=== PATIENT | male | born 1970 | race African-American/Black ===

== ENCOUNTER 2018-04-12 09:27 | Emergency (ER) | payer OTHER ==
[2018-04-12 09:52] LABS: BASOPHILS % (AUTO) 0.3 %; LYMPHOCYTES # (AUTO) 1.1 10^3/uL (1.5-3.5); LYMPHOCYTES % (AUTO) 12.1 %; MEAN CORPUSCULAR HEMOGLOBIN 28.5 pg (27.0-31.0); MEAN CORPUSCULAR HGB CONC 34.4 g/dL (32.0-36.0); MEAN CORPUSCULAR VOLUME 82.9 fL (80.0-94.0); MEAN PLATELET VOLUME 8.7 fL (7.4-11.4); MONOCYTES # (AUTO) 0.3 10^3/uL (0.0-1.0); MONOCYTES % (AUTO) 3.5 %; NEUTROPHILS # (AUTO) 7.6 10^3/uL (1.5-6.6); NEUTROPHILS % (AUTO) 84.1 %; PLT - PLATELET COUNT 181 10^3/uL (130-450); RED BLOOD COUNT 4.55 10^6/uL (4.70-6.10); RED CELL DISTRIBUTION WIDTH 15.2 % (12.0-15.0)
[2018-04-12 10:11] LABS: ALBUMIN 4.4 g/dL (3.2-5.5); ALBUMIN/GLOBULIN RATIO 1.3 (1.0-2.2); CALCIUM 8.6 mg/dL (8.5-10.3); CREATININE 1.4 mg/dL (0.6-1.2); TOTAL PROTEIN 7.9 g/dL (6.7-8.2)
--- NOTE | 2018-04-12 10:15 | XRAY Report ---
Reason: soa, chest pain Procedure Date: 04/12/2018 Accession Number: [id number] / [id number] Procedure: XR - Chest 1 View X-Ray CPT Code: 49529 FULL RESULT: EXAM: CHEST RADIOGRAPHY EXAM DATE: 04/12/2018 10:00 AM. CLINICAL HISTORY: Soa, chest pain. COMPARISON: None. TECHNIQUE: 1 view. FINDINGS: Lungs/Pleura: No focal opacities evident. No pleural effusion. No pneumothorax. Mediastinum: Within exam limitations, the cardiomediastinal contour is normal. Other: None. IMPRESSION: Normal single view chest. RADIA
--- NOTE | 2018-04-12 10:21 | ED Physician Documentation ---
PD HPI DYSPNEA - Stated complaint Stated Complaint: SOA - Chief complaint Chief Complaint: Resp - History obtained from History obtained from: Patient - History of Present Illness Timing - onset: Yesterday Timing - onset during: Light activity Timing - duration: Days (1) Timing - details: Gradual onset, Still present Inciting event(s): Other (recent ETOH to excess) Improved by: Rest Worsened by: Exertion Associated symptoms: Fever, Cough, Chest pain / discomfort Similar symptoms before: Has not had sx before Recently seen: Not recently seen - Additional information Additional information: 47-year-old male with a prior history of pancreatitis has developed fever cough and chest pain with dyspnea. He states that he believes the dyspnea began last night and he experienced chest pain associated with this. He does state that he did some drinking over the weekend and that this was due in excess and he was hydrating a lot yesterday and despite this he developed some nausea and vomiting. He has felt that he has a fever and he has coughed up some clear phlegm and he describes central chest pressure that is continuous. He denies any epigastric pain and denies any sensation similar to what he has had when he pancreatitis previously. Review of Systems Constitutional: denies: Fever Eyes: denies: Decreased vision Ears: denies: Ear pain Nose: reports: Congestion. denies: Rhinorrhea / runny nose Throat: denies: Sore throat Cardiac: reports: Chest pain / pressure. denies: Palpitations, Pedal edema, Calf pain Respiratory: reports: Dyspnea, Cough. denies: Hemoptysis, Wheezing GI: reports: Nausea, Vomiting. denies: Abdominal Pain : denies: Dysuria, Frequency PD PAST MEDICAL HISTORY - Past Medical History Cardiovascular: Hypertension Respiratory: None Endocrine/Autoimmune: None GI: Pancreatitis - Past Surgical History Past Surgical History: No - Present Medications Home Medications: Ambulatory Orders Medication Instructions Recorded Confirmed No Known Home Medications 04/12/18 04/12/18 - Allergies Allergies/Adverse Reactions: Allergies Allergy/AdvReac Type Severity Reaction Status Date / Time No Known Drug Allergies Allergy Verified 04/12/18 09:41 - Social History Does the pt smoke?: No Smoking Status: Never smoker Does the pt drink ETOH?: No Does the pt have substance abuse?: No - Immunizations Immunizations are current?: Yes PD ED PE NORMAL - Vitals Vital signs reviewed: Yes (hypertensive ) - General General: Alert and oriented X 3, Well developed/nourished, Other (appears withdrawn and has AOB) - HEENT HEENT: Atraumatic, PERRL, EOMI, Ears normal, Other (dry mucous membranes ) - Neck Neck: Supple, no meningeal sign, No bony TTP - Cardiac Cardiac: RRR, No murmur - Respiratory Respiratory: Clear bilaterally, Other (tachpneic at rest ) - Abdomen Abdomen: Soft, Non tender - Back Back: No CVA TTP, No spinal TTP - Derm Derm: Normal color, Warm and dry, No rash - Extremities Extremities: No deformity, No edema - Neuro Neuro: Alert and oriented X 3, sewing 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 operator 2-12 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, No motor deficit, No sensory deficit, Normal speech Eye Opening: Spontaneous Motor: Obeys Commands Verbal: Oriented GCS Score: 15 - Psych Psych: Normal mood, Normal affect Results - Vitals Vitals: Vital Signs - 24 hr 04/12/18 04/12/18 04/12/18 09:36 09:51 10:07 Temperature 37.2 C Heart Rate 95 93 97 Respiratory 24 30 H 25 H Rate Blood Pressure 155/91 H 144/88 H O2 Saturation 100 96 100 04/12/18 04/12/18 04/12/18 10:57 11:10 12:26 Temperature 37.0 C Heart Rate 102 H 103 H 98 Respiratory 33 H 29 H 29 H Rate Blood Pressure 149/93 H 145/80 H 133/79 H O2 Saturation 98 99 95 04/12/18 04/12/18 04/12/18 13:33 14:07 16:38 Temperature Heart Rate 98 102 H 98 Respiratory 22 34 H 29 H Rate Blood Pressure 143/83 H 147/88 H 149/84 H O2 Saturation 98 98 100 Oxygen O2 Source Room air - EKG (time done) 0946 Rate: Rate (enter#) (89) Rhythm: NSR Intervals: Prolonged QT (borderline) QRS: LVH Compare to prior EKG: Old EKG unavailable Computer interpretation: Agree with computer - Labs Labs: Laboratory Tests 04/12/18 04/12/18 04/12/18 09:43 09:43 09:43 WBC 9.0 RBC 4.55 L Hgb 13.0 L Hct 37.7 L MCV 82.9 MCH 28.5 MCHC 34.4 RDW 15.2 H Plt Count 181 MPV 8.7 Neut # (Auto) 7.6 H Lymph # (Auto) 1.1 L Pike # (Auto) 0.3 Eos # (Auto) 0.0 Baso # (Auto) 0.0 Absolute Nucleated RBC 0.00 Nucleated RBC % 0.0 APTT Sodium 139 Potassium 3.9 Chloride 98 L Carbon Dioxide 17 L Anion Gap 24.0 H BUN 14 Creatinine 1.4 H Estimated GFR (MDRD) 66 L Glucose 81 Lactic Acid Calcium 8.6 Total Bilirubin 1.0 AST 93 H ALT 56 Alkaline Phosphatase 92 Troponin I < 0.04 Total Protein 7.9 Albumin 4.4 Globulin 3.5 Albumin/Globulin Ratio 1.3 Lipase 21 L Urine Color Urine Clarity Urine pH Ur Specific Ulysses Urine Protein Urine Glucose (UA) Urine Ketones Urine Occult Blood Urine Nitrite Urine Bilirubin Urine Urobilinogen Ur Leukocyte Esterase Ur Microscopic Review Urine Culture Comments Ethyl Alcohol 04/12/18 04/12/18 04/12/18 09:43 09:43 10:00 WBC RBC Hgb Hct MCV MCH MCHC RDW Plt Count MPV Neut # (Auto) Lymph # (Auto) Pike # (Auto) Eos # (Auto) Baso # (Auto) Absolute Nucleated RBC Nucleated RBC % APTT 22.0 L Sodium Potassium Chloride Carbon Dioxide Anion Gap BUN Creatinine Estimated GFR (MDRD) Glucose Lactic Acid 7.8 H* Calcium Total Bilirubin AST ALT Alkaline Phosphatase Troponin I Total Protein Albumin Globulin Albumin/Globulin Ratio Lipase Urine Color Urine Clarity Urine pH Ur Specific Ulysses Urine Protein Urine Glucose (UA) Urine Ketones Urine Occult Blood Urine Nitrite Urine Bilirubin Urine Urobilinogen Ur Leukocyte Esterase Ur Microscopic Review Urine Culture Comments Ethyl Alcohol 142.4 04/12/18 04/12/18 04/12/18 10:10 13:08 16:35 WBC RBC Hgb Hct MCV MCH MCHC RDW Plt Count MPV Neut # (Auto) Lymph # (Auto) Pike # (Auto) Eos # (Auto) Baso # (Auto) Absolute Nucleated RBC Nucleated RBC % APTT Sodium Potassium Chloride Carbon Dioxide Anion Gap BUN Creatinine Estimated GFR (MDRD) Glucose Lactic Acid 4.2 H* 1.8 Calcium Total Bilirubin AST ALT Alkaline Phosphatase Troponin I Total Protein Albumin Globulin Albumin/Globulin Ratio Lipase Urine Color DARK YELLOW Urine Clarity CLEAR Urine pH 5.5 Ur Specific Ulysses >=1.030 H Urine Protein NEGATIVE Urine Glucose (UA) NEGATIVE Urine Ketones >=80 H Urine Occult Blood NEGATIVE Urine Nitrite NEGATIVE Urine Bilirubin NEGATIVE Urine Urobilinogen 0.2 (NORMAL) Ur Leukocyte Esterase NEGATIVE Ur Microscopic Review NOT INDICATED Urine Culture Comments NOT INDICATED Ethyl Alcohol - Rads (name of study) one veiw chest Radiology: Prelim report reviewed (Impression: Normal single view chest.), EMP read indepedently, See rad report Procedures - IVC sono (time) 1030 Bedside IVC sono: IVC measures (cm) (0.77), Dehydration (est 2-3 liter deficit) PD MEDICAL DECISION MAKING - ED course Complexity details: reviewed old records, reviewed results, re-evaluated patient, considered differential, d/w patient ED course: 47-year-old male with a history of prior pancreatitis has developed acute and s ignificant dehydration resulting in some shortness of breath and chest pain. The patient is found to have a blood alcohol level of 142 and this is after his last drink at 10:00 the night prior. Patient does state that he was free pouring some Lipscomb mist. He did not think he drank more than several drinks. His blood alcohol was likely over 400 last night and this appears to be the likely culprit on why the patient is dehydrated with an elevated lactate. The patient as given a banana bag and IV saline and is markedly improved on discharge. Departure - Departure Disposition: 01 Home, Self Care Clinical Impression: Dehydration Alcohol poisoning Qualifiers: Encounter type: initial encounter Injury intent: accidental or unintentional Qualified Code(s): T51.91XA - Toxic effect of unspecified alcohol, accidental (unintentional), initial encounter Condition: Stable Instructions: ED Dehydration, ED Overdose Alcohol Follow-Up: FREDRICK ALVES MD [Primary Care Provider] -
[2018-04-12] MEDS ORDERED: SODIUM CHLORIDE 0.9% 1,000 ML IV ONE ×2 (10:36→15:09)
[2018-04-12] MEDS ORDERED: FOLIC ACID INJ 1 MG, THIAMINE INJ 100 MG, MAGNESIUM SULFATE 2 GM, MULTIVITAMIN 10 ML in... IV STA ×5 (10:36)
[2018-04-12] MEDS ORDERED: VANCOMYCIN INJ 1 GM in SODIUM CHLORIDE 0.9% 500 ML IV STA (10:37)
[2018-04-12] MEDS ORDERED: CEFEPIME 1 GM in SODIUM CHLORIDE 0.9% MINIBAG 100 ML IV STA (10:37)
[2018-04-12 11:16] LABS: BILIRUBIN,URINE NEGATIVE (NEGATIVE); GLUCOSE, URINE (UA) NEGATIVE (NEGATIVE); KETONES,URINE (UA) >=80 mg/dL (NEGATIVE); LEUKOCYTE ESTERASE, URINE NEGATIVE (NEGATIVE); NITRITE,URINE NEGATIVE (NEGATIVE); OCCULT BLOOD,URINE NEGATIVE (NEGATIVE); PH,URINE 5.5 PH (5.0-7.5); PROTEIN,URINE NEGATIVE (NEGATIVE); UROBILINOGEN,URINE 0.2 (NORMAL) E.U./dL (NORMAL)
[2018-04-12 11:17] LABS: CLARITY,URINE CLEAR (CLEAR)
[2018-04-12 16:38] VITALS: BP 149/84
== END 2018-04-12 17:04 | disposition home or self-care (01) ==
LOC: ED 09:27
DX: E86.0 Dehydration (principal); T51.91XA Toxic effect of unspecified alcohol, accidental (unintentional), initial encounter; I10 Essential (primary) hypertension; I45.81 Long QT syndrome; I51.7 Cardiomegaly; Y90.6 Blood alcohol level of 120-199 mg/100 ml
CPT/HCPCS: 36415; 71045; 80053; 80320; 81003; 83605; 83690; 84484; 85025; 85730; 87040; 93005; 96365; 96366; 96367; 96368; 99284; J3370; J3411; 81001; 87086

== ENCOUNTER 2018-09-27 23:02 | Outpatient (CLI) | payer OTHER | END 2018-09-27 23:03 | disposition critical access hospital (66) | LOC: EMS 23:02 | PROVIDERS: ATTEND Surgery | DX: S89.92XA Unspecified injury of left lower leg, initial encounter (principal); V18.4XXA Pedal cycle driver injured in noncollision transport accident in traffic accident, initial encounter; Y93.55 Activity, bike riding; Y92.410 Unspecified street and highway as the place of occurrence of the external cause | CPT/HCPCS: A0425; A0429 ==

== ENCOUNTER 2018-09-27 23:24 | Inpatient (IN) | payer OTHER ==
[2018-09-27] MEDS ORDERED: ONDANSETRON 4 MG/2 ML VIAL IVP STA (23:34)
[2018-09-27] MEDS ORDERED: fentaNYL 100 MCG/2 ML VIAL IVP STA (23:34)
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
[2018-09-28] MEDS ORDERED: ONDANSETRON 4 MG/2 ML VIAL IVP PRN ×2 (00:58→17:07)
[2018-09-28] MEDS ORDERED: HYDROmorphone 0.5 MG/0.5 ML SYRINGE IVP PRN (00:58)
[2018-09-28] MEDS ORDERED: ENOXAPARIN 40 MG/0.4 ML SYRINGE SUBQ SCH (01:07)
[2018-09-28] MEDS ORDERED: MORPHINE 2 MG/ML SYRINGE IVP STA (01:24)
[2018-09-28] MEDS: SODIUM CHLORIDE 0.9% 1,000 ML IV SCH ×3 (02:13→20:29)
[2018-09-28] MEDS: SODIUM CHLORIDE FLUSH 0.9% 10 ML SYRINGE IVP SCH ×3 (02:20→18:20)
[2018-09-28] MEDS: HYDROmorphone 1 MG/ML CARPUJECT IVP PRN ×3 (02:47→11:06)
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
[2018-09-28] MEDS: SODIUM CHLORIDE FLUSH 0.9% 10 ML SYRINGE IVP PRN (04:59)
[2018-09-28] MEDS ORDERED: HYDROmorphone 1 MG/ML CARPUJECT IVP PRN (05:16)
--- NOTE | 2018-09-28 08:46 | ANESTHESIA ---
Pre-Anesthesia VS, & Labs - Diagnosis Left tibial fracture - Procedure left orif tibial fracture Vital Signs: Temp Pulse Resp BP Pulse Ox 37 C 77 18 124/76 94 09/28/18 02:10 09/28/18 02:10 09/28/18 02:10 09/28/18 02:10 09/28/18 02:10 Height 5 ft 9 in Weight (kg) 77 kg Body Mass Index 25.0 - NPO >8 hours Home Medications and Allergies Active Medications Hydromorphone HCl (Dilaudid Inj Carp) 1 mg IVP Q2HR PRN PRN Reason: MODERATE PAIN 4-7 Last Admin: 09/28/18 04:58 Dose: 1 mg Hydromorphone HCl (Dilaudid Inj Carp) 1.5 mg IVP Q2HR PRN PRN Reason: SEVERE PAIN 8-10 Last Admin: 09/28/18 07:48 Dose: 1.5 mg Sodium Chloride (Normal Saline 0.9%) 1,000 mls @ 100 mls/hr IV .Q10H [facility] Last Admin: 09/28/18 02:13 Dose: 100 mls/hr Ondansetron HCl (Zofran Inj) 4 mg IVP Q6HR PRN PRN Reason: Nausea / Vomiting Polyethylene Glycol (Miralax) 17 gm PO DAILY [facility] Sodium Chloride (Normal Saline Flush 0.9%) 10 ml IVP PRN PRN PRN Reason: NEEDED PER PROVIDER ORDERS Last Admin: 09/28/18 04:59 Dose: 10 ml Sodium Chloride (Normal Saline Flush 0.9%) 10 ml IVP 0100,0900,1700 [facility] Last Admin: 09/28/18 02:20 Dose: 10 ml No Known Home Medications 04/12/18 Home meds: trazadone, amlodapine Allergies/Adverse Reactions: Allergies Allergy/AdvReac Type Severity Reaction Status Date / Time No Known Drug Allergies Allergy Verified 09/27/18 23:30 Anes History & Medical History - Anesthetic History Anesthesia Complications: reports: No previous complications Family history of Anesthesia Complications: Denies Family history of Malignant Hyperthermia: Denies - Medical History Cardiovascular: reports: Hypertension Pulmonary: reports: None Gastrointestinal: reports: None, Pancreatitis (2016) Urinary: reports: None Neuro: reports: None Musculoskeletal: reports: None Endocrine/Autoimmune: reports: None Blood Disorders: reports: None Smoking Status: Never smoker Psychosocial: reports: No issues indicated - Surgical History Eyes Ears Nose Throat (EENT): Other (dental surgery) Exam General: Alert, Oriented x3, Cooperative, No acute distress Dental: WNL Mouth Openin Fingerbreadth Neck Mobility: Normal Mallampati classification: II Thyromental Distance: 4-6 cm Respiratory: Lungs clear, Normal breath sounds, No respiratory distress, No accessory muscle use Cardiovascular: Regular rate, Normal S1, Normal S2, No murmurs Mental/Cognitive Status: Alert/Oriented X3, Normal for patient Plan Anesthesia Type: General Consent for Procedure(s) Verified and Reviewed: Yes Code Status: Attempt Resuscitation ASA classification: 2-Mild systemic disease Is this case an emergency?: No
[2018-09-28] MEDS ORDERED: KETOROLAC 30 MG/ML VIAL IVP SCH (08:51)
[2018-09-28] MEDS ORDERED: ACETAMINOPHEN 500 MG TABLET PO PRN (08:51)
[2018-09-28] MEDS: POLYETHYLENE GLYCOL 3350 17 GM PACKET PO SCH (09:15)
[2018-09-28] MEDS ORDERED: BUPIVACAINE 0.5%-EPI 1:200000 PF 30 ML VIAL ONE (12:15)
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
[2018-09-28] MEDS ORDERED: LACTATED RINGERS 1,000 ML IV ONE ×3 (13:50→16:06)
[2018-09-28] MEDS ORDERED: BUPIVACAINE 0.5%-EPI 1:200000 PF 30 ML VIAL SUBQ ONE (14:28)
[2018-09-28] MEDS ORDERED: fentaNYL 100 MCG/2 ML VIAL IVP ONE (14:30)
[2018-09-28] MEDS ORDERED: ONDANSETRON 4 MG/2 ML VIAL IVP ONE (14:30)
[2018-09-28] MEDS ORDERED: MIDAZOLAM 2 MG/2 ML VIAL IVP ONE (14:30)
[2018-09-28] MEDS ORDERED: ROCURONIUM 50 MG/5 ML VIAL IVP ONE (14:30)
[2018-09-28] MEDS ORDERED: PROPOFOL 200 MG/20 ML VIAL IVP ONE (14:30)
[2018-09-28] MEDS ORDERED: DEXAMETHASONE 4 MG/ML VIAL IVP ONE (14:30)
[2018-09-28] MEDS ORDERED: KETOROLAC 30 MG/ML VIAL IVP ONE (14:30)
[2018-09-28] MEDS ORDERED: SUCCINYLCHOLINE 200 MG/10 ML VIAL IVP ONE (14:30)
[2018-09-28] MEDS ORDERED: ePHEDrine 50 MG/ML VIAL IVP ONE (14:30)
[2018-09-28] MEDS ORDERED: HYDROmorphone 1 MG/ML SYRINGE IVP ONE (14:30)
[2018-09-28] MEDS ORDERED: ceFAZolin 1 GM VIAL IV ONE (14:30)
[2018-09-28] MEDS ORDERED: fentaNYL 250 MCG/5 ML VIAL IVP ONE (14:30)
[2018-09-28] MEDS ORDERED: ACETAMINOPHEN 1,000 MG/100 ML 100 ML IV ONE (14:30)
[2018-09-28] MEDS ORDERED: LIDOCAINE-MPF 1% 5 ML VIAL SUBQ ONE (14:30)
--- NOTE | 2018-09-28 16:41 | XRAY Report ---
Reason: Left Tibia Fx rodding Procedure Date: 09/28/2018 Accession Number: [id number] / [id number] Procedure: XR - Tib/Fib LT CPT Code: FULL RESULT: EXAM: LEFT TIBIA/FIBULA RADIOGRAPHY EXAM DATE: 09/28/2018 04:24 PM. CLINICAL HISTORY: Intra- op check COMPARISON: 09/27/2018. TECHNIQUE: 2 views. FINDINGS IMPRESSION: C-arm fluoroscopic assistance is provided for intramedullary alayna placement in the left tibia. 6 images are obtained. RADIA
--- NOTE | 2018-09-28 16:48 | XRAY Report ---
Reason: FX LEFT TIBIA Procedure Date: 09/28/2018 Accession Number: [id number] / [id number] Procedure: FL - OR C-Arm Procedure CPT Code: FULL RESULT: EXAM: FLUOROSCOPIC GUIDANCE EXAM DATE: 09/28/2018 04:24 PM. CLINICAL HISTORY: Left tibia fracture COMPARISON: 09/27/2018. FINDINGS IMPRESSION: Fluoroscopic guidance provided for ORIF left tibia.. Total fluoroscopy time: 1:58 minutes. Number of images: 6. JOSUE
--- NOTE | 2018-09-28 17:06 | IMMEDIATE POSTOPERATIVE NOTE ---
Immediate Postoperative Note - Procedure Note Procedure Date: 09/28/18 Pre-Op Diagnosis: Left tibia and fibula fracture Procedure: Left tibia open reduction internal fixation with intramedullary nail Post-Op Diagnosis: Same Primary Surgeon: Yessy Odell Soap Drier Operator: KORINA Anesthesia Type: General ET tube, Local Complications: No complications Estimated Blood Loss (in cc): 200 Plan of Care: Patient told procedure well instrument and sponge counts correct patient will be admitted for overnight for observation and then be discharged when eating ambulating comfortable. He would have neurovascular checks and analgesics overnight. He will be on perioperative DVT prophylaxis perioperative antibiotics nonweightbearing left lower extremity with crutches, walker, or other assistive device and assistance as necessary.
[2018-09-28] MEDS ORDERED: SENNA 8.6 MG TABLET PO PRN (17:07)
[2018-09-28] MEDS ORDERED: SODIUM CHLORIDE FLUSH 0.9% 10 ML SYRINGE IVP PRN (17:07)
[2018-09-28] MEDS ORDERED: PROCHLORPERAZINE 10 MG/2 ML VIAL IVP PRN (17:07)
[2018-09-28] MEDS ORDERED: ACETAMINOPHEN 1,000 MG/100 ML 100 ML IV PRN (17:07)
[2018-09-28] MEDS: oxyCODONE 5 MG TABLET PO PRN (18:19)
[2018-09-28 19:00] LABS: BASOPHILS # (AUTO) 0.1 10^3/uL (0.0-0.1); BASOPHILS % (AUTO) 0.7 %; HGB - HEMOGLOBIN 11.7 g/dL (14.0-18.0); INR 1.1 (0.8-1.2); LYMPHOCYTES # (AUTO) 0.6 10^3/uL (1.5-3.5); LYMPHOCYTES % (AUTO) 6.2 %; MEAN CORPUSCULAR HEMOGLOBIN 25.8 pg (27.0-31.0); MEAN CORPUSCULAR HGB CONC 32.9 g/dL (32.0-36.0); MEAN CORPUSCULAR VOLUME 78.3 fL (80.0-94.0); MEAN PLATELET VOLUME 7.9 fL (7.4-11.4); MONOCYTES # (AUTO) 0.3 10^3/uL (0.0-1.0); MONOCYTES % (AUTO) 3.5 %; NEUTROPHILS # (AUTO) 8.2 10^3/uL (1.5-6.6); NEUTROPHILS % (AUTO) 89.6 %; PLT - PLATELET COUNT 219 10^3/uL (130-450); PT - PROTHROMBIN TIME 12.4 secs (9.9-12.6); RED BLOOD COUNT 4.54 10^6/uL (4.70-6.10); RED CELL DISTRIBUTION WIDTH 17.5 % (12.0-15.0); WHITE BLOOD COUNT 9.1 x10^3/uL (4.8-10.8)
[2018-09-28 19:18] LABS: CALCIUM 7.8 mg/dL (8.5-10.3); CREATININE 1.4 mg/dL (0.6-1.2)
[2018-09-28] MEDS: APIXABAN 5 MG TABLET PO SCH (20:28)
[2018-09-28] MEDS: ceFAZolin 2 GM in SODIUM CHLORIDE 0.9% MINIBAG 100 ML IV SCH (21:35)
[2018-09-29] MEDS ORDERED: SODIUM CHLORIDE FLUSH 0.9% 10 ML SYRINGE IVP SCH (01:00)
[2018-09-29] MEDS: SODIUM CHLORIDE FLUSH 0.9% 10 ML SYRINGE IVP SCH ×4 (01:07→23:43)
[2018-09-29] MEDS: CALCIUM CARBONATE CHEW 500 MG TABLET PO SCH ×3 (01:12→21:19)
[2018-09-29] MEDS: oxyCODONE 5 MG TABLET PO PRN ×6 (04:30→22:39)
[2018-09-29 05:37] LABS: HB2 TOTAL 10.5 g/dL; HEMOGLOBIN A1C 0.44 g/dL
[2018-09-29] MEDS: ceFAZolin 2 GM in SODIUM CHLORIDE 0.9% MINIBAG 100 ML IV SCH (06:03)
[2018-09-29] MEDS: SODIUM CHLORIDE FLUSH 0.9% 10 ML SYRINGE IVP PRN ×2 (06:04→11:13)
[2018-09-29] MEDS: SODIUM CHLORIDE 0.9% 1,000 ML IV SCH ×3 (06:44→23:48)
[2018-09-29] MEDS: HYDROmorphone 0.5 MG/0.5 ML SYRINGE IVP PRN ×6 (08:28→23:42)
[2018-09-29] MEDS: amLODIPine 5 MG TABLET PO SCH (08:57)
[2018-09-29] MEDS: POLYETHYLENE GLYCOL 3350 17 GM PACKET PO SCH (08:57)
[2018-09-29] MEDS: APIXABAN 5 MG TABLET PO SCH ×2 (08:57→21:20)
--- NOTE | 2018-09-29 09:37 | CONSULTATION NOTE ---
History - Past Medical History Cardiovascular: reports: Hypertension Respiratory: reports: None Neuro: reports: None Endocrine/Autoimmune: reports: None GI: reports: None, Pancreatitis (2016) : reports: None Musculoskeletal: reports: None MRSA Hx?: No - Past Surgical History HEENT: reports: Other (dental surgery) Meds/Allgy - Home Medications Home Medications: Ambulatory Orders Medication Instructions Recorded Confirmed Amlodipine Besylate 10 mg PO DAILY 09/28/18 09/28/18 Trazodone HCl 50 mg PO QPM 09/28/18 09/28/18 - Allergies Allergies/Adverse Reactions: Allergies Allergy/AdvReac Type Severity Reaction Status Date / Time No Known Drug Allergies Allergy Verified 09/27/18 23:30 Exam - Vital Signs Vital Signs: Vital Signs x48h Temp Pulse Resp BP Pulse Ox 09/29/18 08:36 37.2 C 81 18 133/68 H 97 09/29/18 03:00 37.0 C 83 16 140/78 H 100 Conclusion/Plan - Lab Results Fish Bones: 09/28/18 18:47 09/28/18 18:47
[2018-09-29 09:41] LABS: BASOPHILS % (AUTO) 0.5 %; EOSINOPHILS % (AUTO) 0.1 %; HGB - HEMOGLOBIN 9.8 g/dL (14.0-18.0); LYMPHOCYTES % (AUTO) 24.2 %; MEAN CORPUSCULAR HEMOGLOBIN 26.1 pg (27.0-31.0); MEAN CORPUSCULAR HGB CONC 33.6 g/dL (32.0-36.0); MEAN CORPUSCULAR VOLUME 77.9 fL (80.0-94.0); MEAN PLATELET VOLUME 8.1 fL (7.4-11.4); MONOCYTES # (AUTO) 0.4 10^3/uL (0.0-1.0); MONOCYTES % (AUTO) 4.8 %; NEUTROPHILS # (AUTO) 5.7 10^3/uL (1.5-6.6); NEUTROPHILS % (AUTO) 70.4 %; PLT - PLATELET COUNT 165 10^3/uL (130-450); RED BLOOD COUNT 3.74 10^6/uL (4.70-6.10); RED CELL DISTRIBUTION WIDTH 17.3 % (12.0-15.0); WHITE BLOOD COUNT 8.1 x10^3/uL (4.8-10.8)
[2018-09-29 09:52] LABS: ALBUMIN 3.1 g/dL (3.2-5.5); ALBUMIN/GLOBULIN RATIO 1.1 (1.0-2.2); BILIRUBIN,TOTAL 0.7 mg/dL (0.2-1.0); CALCIUM 7.6 mg/dL (8.5-10.3); CREATININE 1.2 mg/dL (0.6-1.2); TOTAL PROTEIN 5.9 g/dL (6.7-8.2)
[2018-09-29 10:04] LABS: HB2 TOTAL 10.1 g/dL; HEMOGLOBIN A1C 0.33 g/dL; HEMOGLOBIN A1C % 5.1 % (4.6-6.2)
[2018-09-29] MEDS: ACETAMINOPHEN 325 MG TABLET PO PRN ×2 (11:13→18:18)
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
[2018-09-29] MEDS: HYDROcod/ACETAM 5/325 MG TABLET PO PRN ×2 (15:27→20:08)
--- NOTE | 2018-09-29 16:54 | PROVIDER PROGRESS NOTE ---
Subjective - Prog Note Date Prog Note Date: 09/29/18 Prog Note Time: 07:20 - Subjective Pt reports feeling: Improved (Patient said he has some soreness in his right knee but overall says that he thinks he is feeling better this morning. He is appreciative of his surgery. He does mention having difficulty sleeping overnight.) Objective - Vital Signs/Intake & Output Vital Signs: Vital Signs x48h Temp Pulse Pulse Pulse Resp BP BP 09/29/18 15:41 37.2 C 72 16 128/63 09/29/18 13:16 36.8 C 72 16 123/72 09/29/18 12:00 36.7 C 79 16 113/66 09/29/18 10:25 97 81 125/79 BP Pulse Ox 09/29/18 15:41 96 09/29/18 13:16 98 09/29/18 12:00 95 09/29/18 10:25 127/70 Intake & Output: Intake & Output 09/26/18 09/27/18 09/28/18 09/29/18 23:59 23:59 23:59 23:59 Intake Total 4440 3301.666 Output Total 1600 2400 Balance 2840 901.666 - Lab Results Fish Bones: 09/29/18 09:30 09/29/18 09:30 Other Labs: Lab Results x24hrs 09/29/18 09/29/18 09/29/18 Range/Units 09:30 09:30 09:30 WBC 8.1 (4.8-10.8) x10^3/uL RBC 3.74 L (4.70-6.10) 10^6/uL Hgb 9.8 L (14.0-18.0) g/dL Hct 29.1 L (42.0-52.0) % MCV 77.9 L (80.0-94.0) fL MCH 26.1 L (27.0-31.0) pg MCHC 33.6 (32.0-36.0) g/dL RDW 17.3 H (12.0-15.0) % Plt Count 165 (130-450) 10^3/uL MPV 8.1 (7.4-11.4) fL Neut # (Auto) 5.7 (1.5-6.6) 10^3/uL Lymph # (Auto) 2.0 (1.5-3.5) 10^3/uL [place] # (Auto) 0.4 (0.0-1.0) 10^3/uL Eos # (Auto) 0.0 (0.0-0.7) 10^3/uL Baso # (Auto) 0.0 (0.0-0.1) 10^3/uL Absolute Nucleated RBC 0.01 x10^3/uL Nucleated RBC % 0.1 /100WBC PT (9.9-12.6) secs INR (0.8-1.2) Sodium (135-145) mmol/L Potassium (3.5-5.0) mmol/L Chloride (101-111) mmol/L Carbon Dioxide (21-32) mmol/L Anion Gap (6-13) BUN (6-20) mg/dL Creatinine (0.6-1.2) mg/dL Estimated GFR (MDRD) (>89) Glucose (70-100) mg/dL Glycated Hemoglobin 5.1 (4.6-6.2) % Estim Average Glucose 100 (70-100) Calcium (8.5-10.3) mg/dL Total Bilirubin (0.2-1.0) mg/dL GGT (8-55) IU/L AST (10-42) IU/L ALT (10-60) IU/L Alkaline Phosphatase (42-121) IU/L Total Protein (6.7-8.2) g/dL Albumin (3.2-5.5) g/dL Globulin (2.1-4.2) g/dL Albumin/Globulin Ratio (1.0-2.2) TSH 0.76 (0.34-5.60) uIU/mL 09/29/18 09/29/18 09/28/18 Range/Units 09:30 04:15 18:47 WBC (4.8-10.8) x10^3/uL RBC (4.70-6.10) 10^6/uL Hgb (14.0-18.0) g/dL Hct (42.0-52.0) % MCV (80.0-94.0) fL MCH (27.0-31.0) pg MCHC (32.0-36.0) g/dL RDW (12.0-15.0) % Plt Count (130-450) 10^3/uL MPV (7.4-11.4) fL Neut # (Auto) (1.5-6.6) 10^3/uL Lymph # (Auto) (1.5-3.5) 10^3/uL [place] # (Auto) (0.0-1.0) 10^3/uL Eos # (Auto) (0.0-0.7) 10^3/uL Baso # (Auto) (0.0-0.1) 10^3/uL Absolute Nucleated RBC x10^3/uL Nucleated RBC % /100WBC PT (9.9-12.6) secs INR (0.8-1.2) Sodium 136 139 (135-145) mmol/L Potassium 3.6 4.7 (3.5-5.0) mmol/L Chloride 96 L 101 (101-111) mmol/L Carbon Dioxide 30 25 (21-32) mmol/L Anion Gap 10.0 13.0 (6-13) BUN 10 18 (6-20) mg/dL Creatinine 1.2 1.4 H (0.6-1.2) mg/dL Estimated GFR (MDRD) 79 L 66 L (>89) Glucose 133 H 175 H (70-100) mg/dL Glycated Hemoglobin 6.0 (4.6-6.2) % Estim Average Glucose 126 H (70-100) Calcium 7.6 L 7.8 L (8.5-10.3) mg/dL Total Bilirubin 0.7 (0.2-1.0) mg/dL GGT 25 (8-55) IU/L AST 30 (10-42) IU/L ALT 16 (10-60) IU/L Alkaline Phosphatase 47 (42-121) IU/L Total Protein 5.9 L (6.7-8.2) g/dL Albumin 3.1 L (3.2-5.5) g/dL Globulin 2.8 (2.1-4.2) g/dL Albumin/Globulin Ratio 1.1 (1.0-2.2) TSH (0.34-5.60) uIU/mL 09/28/18 09/28/18 Range/Units 18:47 18:47 WBC 9.1 (4.8-10.8) x10^3/uL RBC 4.54 L (4.70-6.10) 10^6/uL Hgb 11.7 L (14.0-18.0) g/dL Hct 35.6 L (42.0-52.0) % MCV 78.3 L (80.0-94.0) fL MCH 25.8 L (27.0-31.0) pg MCHC 32.9 (32.0-36.0) g/dL RDW 17.5 H (12.0-15.0) % Plt Count 219 (130-450) 10^3/uL MPV 7.9 (7.4-11.4) fL Neut # (Auto) 8.2 H (1.5-6.6) 10^3/uL Lymph # (Auto) 0.6 L (1.5-3.5) 10^3/uL [place] # (Auto) 0.3 (0.0-1.0) 10^3/uL Eos # (Auto) 0.0 (0.0-0.7) 10^3/uL Baso # (Auto) 0.1 (0.0-0.1) 10^3/uL Absolute Nucleated RBC 0.01 x10^3/uL Nucleated RBC % 0.1 /100WBC PT 12.4 (9.9-12.6) secs INR 1.1 (0.8-1.2) Sodium (135-145) mmol/L Potassium (3.5-5.0) mmol/L Chloride (101-111) mmol/L Carbon Dioxide (21-32) mmol/L Anion Gap (6-13) BUN (6-20) mg/dL Creatinine (0.6-1.2) mg/dL Estimated GFR (MDRD) (>89) Glucose (70-100) mg/dL Glycated Hemoglobin (4.6-6.2) % Estim Average Glucose (70-100) Calcium (8.5-10.3) mg/dL Total Bilirubin (0.2-1.0) mg/dL GGT (8-55) IU/L AST (10-42) IU/L ALT (10-60) IU/L Alkaline Phosphatase (42-121) IU/L Total Protein (6.7-8.2) g/dL Albumin (3.2-5.5) g/dL Globulin (2.1-4.2) g/dL Albumin/Globulin Ratio (1.0-2.2) TSH (0.34-5.60) uIU/mL - Other Results/Comments Other Results/Comments: Pt LLE is in a posterior splint he is able to flex and extend his toes he has sensation throughout his top of his foot first webspace and toes. Is good warmth throughout his toes no significant discomfort with flexion extension the reports mild soreness in the brunner with that. He is able to flex and extend his knee 0 degrees to about 45 degrees with good comfort. Assessment/Plan - Problem List (1) Tibia fracture Impression: Patient doing well postop day #1 status post left tibia open reduction and intramedullary nail placement. I recommend continued analgesics as necessary. Continue nonweightbearing left lower extremity. Formal physical therapy is advised to be nonweightbearing using crutches and assistance as necessary. Patient will be on analgesic medications, DVT prophylaxis with chemical and mechanical.. We will consider discharge after therapy today if he is doing well otherwise we will likely have him overnight additional evening and then plan for discharge tomorrow if ambulating and comfortable. The above is reviewed the patient his questions were answered he is appreciative of his treatment thus far. He agrees with the above plan. Qualifiers: Encounter type: subsequent encounter Tibia location: shaft Fracture type: closed Fracture morphology: spiral Fracture alignment: displaced Laterality: left Qualified Code(s): S82.252A - Displaced comminuted fracture of shaft of left tibia, initial encounter for closed fracture
[2018-09-29] MEDS ORDERED: traZODone 50 MG TABLET PO SCH (21:00)
[2018-09-30] MEDS: SODIUM CHLORIDE FLUSH 0.9% 10 ML SYRINGE IVP SCH ×2 (00:30→08:40)
[2018-09-30] MEDS: HYDROcod/ACETAM 5/325 MG TABLET PO PRN ×2 (01:06→05:34)
[2018-09-30] MEDS: HYDROmorphone 0.5 MG/0.5 ML SYRINGE IVP PRN ×3 (01:42→06:15)
[2018-09-30] MEDS: SODIUM CHLORIDE FLUSH 0.9% 10 ML SYRINGE IVP PRN ×2 (01:43→03:45)
[2018-09-30] MEDS: ACETAMINOPHEN 325 MG TABLET PO PRN ×2 (02:48→10:40)
[2018-09-30] MEDS: oxyCODONE 5 MG TABLET PO PRN ×2 (02:48→06:52)
--- NOTE | 2018-09-30 07:46 | Discharge Plan ---
Discharge Plan Disposition: 01 Home, Self Care Condition: Good Diet: Regular Activity Restrictions: NWB LLE, crutches/walker and assist as needed Shower Restrictions: Yes (keep splint dry, Non-weight bearing LLE) Driving Restrictions: Yes Assistance Devices: Crutches (or walker) Weight Bearing: No Weight Instruction Topics: Apixaban oral tablets Additional Instructions or Follow Up instructions: follow-up 10-14 days from surgery in Orthopedic clinic, sooner if problems/questions/worsening of condition Follow-Up Care: Outpatient Rehab - PT (to be set up through office) No Smoking: If you smoke, Please STOP! Call for help. Follow-up with: FREDRICK ALVES MD [Primary Care Provider] - John Odell MD [Provider Admit Priv/Credential] -
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
[2018-09-30] MEDS ORDERED: oxyCODONE 5 MG TABLET PO PRN (08:04)
[2018-09-30] MEDS: CALCIUM CARBONATE CHEW 500 MG TABLET PO SCH (08:50)
[2018-09-30] MEDS: amLODIPine 5 MG TABLET PO SCH (08:50)
[2018-09-30] MEDS: POLYETHYLENE GLYCOL 3350 17 GM PACKET PO SCH (08:51)
[2018-09-30] MEDS: APIXABAN 5 MG TABLET PO SCH (08:51)
[2018-09-30] MEDS ORDERED: SENNA 8.6 MG TABLET PO SCH (09:00)
[2018-09-30] MEDS ORDERED: DOCUSATE SODIUM 250 MG CAPSULE PO SCH (09:00)
--- NOTE | 2018-09-30 11:46 | PROVIDER PROGRESS NOTE ---
Objective - Vital Signs/Intake & Output Vital Signs: Vital Signs x48h Temp Pulse Resp BP Pulse Ox 09/30/18 07:38 37.1 C 67 16 124/77 97 09/30/18 04:00 37.0 C 86 16 120/75 96 Intake & Output: Intake & Output 09/27/18 09/28/18 09/29/18 09/30/18 23:59 23:59 23:59 23:59 Intake Total 4440 5069.999 2020 Output Total 1600 4000 1450 Balance 2840 1069.999 570 - Lab Results Fish Bones: 09/29/18 09:30 09/29/18 09:30 Assessment/Plan - Problem List (1) Tibia fracture Impression: Patient seen and examined again at approximately 11 AM on 09/30/2018. He is sleeping with lights off in his room. He is awake and and alert. He notes that he is having some pain. He points to the anterior medial aspect of the knee as the location of that though says sometimes it will go down. He says is been moving his toes up and down. He is examined his splint is well fitting. He easily is able to flex and extend his toes. He is able to extend his toes against resistance and flex them against resistance both without significant pain. He is set up with his feet over the edge of the bed with his knee almost at 90 degrees in the left side and then is able to on his own bring his leg back up and get back in bed. We discussed his participation in physical therapy and the importance of safety at home. He will have another therapy session either late this morning earlier this afternoon to assure that he is safe and able to manage on his own for his home environment. Pending that and we will consider discharge. This will be if he clears physical therapy. We will also sure that his oral pain medication which has been increased to 10 mg of oxycodone on a 4-hour basis as needed is adequate. The patient has been advised that he will be on oral pain medication, oral DVT prophylaxis, and he is also advised to take oral bowel regimen stool softener medication while he is on the narcotics. Discharge planning discussed and he will follow-up in 10 days or so though notify our office sooner should problems questions or worsening of the condition arise. He verbalized understanding and satisfaction with above plan. Qualifiers: Encounter type: subsequent encounter Tibia location: shaft Fracture type: closed Fracture morphology: spiral Fracture alignment: displaced Laterality: left Qualified Code(s): S82.252A - Displaced comminuted fracture of shaft of left tibia, initial encounter for closed fracture
[2018-09-30 11:50] VITALS: BP 126/74
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
[2018-09-30] MEDS: SODIUM CHLORIDE 0.9% 1,000 ML IV SCH (13:42)
== END 2018-09-30 15:45 | disposition home or self-care (01) | DRG 494 ==
LOC: EDUNIT# → ED 23:24 → MS2 09-28 01:31
PROVIDERS: ADMIT Orthopaedic Surgery Sports Medicine; ATTEND Nurse Practitioner
PROC: 0QSH06Z Reposition Left Tibia with Intramedullary Internal Fixation Device, Open Approach (ICD-10-PCS; principal; 2018-09-30)
DX: S82.242A Displaced spiral fracture of shaft of left tibia, initial encounter for closed fracture (principal); S89.202A Unspecified physeal fracture of upper end of left fibula, initial encounter for closed fracture; W19.XXXA Unspecified fall, initial encounter; Y93.55 Activity, bike riding; I10 Essential (primary) hypertension; G47.00 Insomnia, unspecified
CPT/HCPCS: 29515; 36415; 73590; 73610; 80048; 80053; 82977; 83036; 84443; 85025; 85610; 96374; 97116; 97161; 99283; 99284; A9270; C1713; J0131; J0330; J1170; J1650; J2270; J3010; J7120

== ENCOUNTER 2019-02-10 05:58 | Day surgery (SDC) | payer OTHER ==
[2019-02-10] MEDS ORDERED: CEFAZOLIN SODIUM IN 0.9 % NACL 2 GM/100 ML BAG IV ONE (06:47)
[2019-02-10] MEDS ORDERED: BUPIVACAINE 0.25%-EPI 1:200000 PF 30 ML VIAL SUBQ ONE (07:37)
[2019-02-10] MEDS ORDERED: LACTATED RINGERS 1,000 ML IV ONE ×4 (07:38→10:33)
--- NOTE | 2019-02-10 07:58 | ANESTHESIA ---
Pre-Anesthesia VS, & Labs - Diagnosis Symptomatic L tibial hardware - Procedure L tibia hardware removal Vital Signs: Temp Pulse Resp BP Pulse Ox 36.2 C L 80 18 148/90 H 96 02/10/19 07:22 02/10/19 07:22 02/10/19 07:22 02/10/19 07:22 02/10/19 07:22 Height 5 ft 9 in Weight (kg) 75 kg Body Mass Index 25.0 - NPO >8 hours Home Medications and Allergies Home Medications: Ambulatory Orders Acetaminophen [Tylenol] 1,000 mg PO QID PRN 02/10/19 Amlodipine Besylate 10 mg PO DAILY 09/28/18 Trazodone HCl 50 mg PO QPM 09/28/18 Allergies/Adverse Reactions: Allergies Allergy/AdvReac Type Severity Reaction Status Date / Time No Known Drug Allergies Allergy Verified 09/27/18 23:30 Anes History & Medical History - Anesthetic History Anesthesia Complications: reports: No previous complications Family history of Anesthesia Complications: Denies Family history of Malignant Hyperthermia: Denies - Medical History Cardiovascular: reports: Hypertension Pulmonary: reports: None Gastrointestinal: reports: None, Pancreatitis Urinary: reports: None Neuro: reports: None Musculoskeletal: reports: Chronic back pain Endocrine/Autoimmune: reports: None Blood Disorders: reports: None Smoking Status: Never smoker - Surgical History Eyes Ears Nose Throat (EENT): Other Orthopedic: Other (tibial alayna 10/16) Exam General: Alert, Oriented x3, Cooperative Dental: WNL Mouth Openin Fingerbreadth Neck Mobility: Normal Mallampati classification: II Thyromental Distance: 4-6 cm Respiratory: Lungs clear, Normal breath sounds Cardiovascular: Regular rate Neurological: Normal speech Mental/Cognitive Status: Alert/Oriented X3, Normal for patient Cognitive Status: Within normal limits Plan Anesthesia Type: General Consent for Procedure(s) Verified and Reviewed: Yes Code Status: Attempt Resuscitation ASA classification: 2-Mild systemic disease Is this case an emergency?: No
[2019-02-10] MEDS ORDERED: BUPIVACAINE 0.5%-EPI 1:200000 PF 30 ML VIAL SUBQ ONE ×2 (08:06→09:46)
[2019-02-10] MEDS ORDERED: BUPIVACAINE 0.5%-EPI 1:200000 PF 10 ML VIAL ONE ×2 (08:10→08:22)
[2019-02-10] MEDS ORDERED: oxyCODONE 5 MG TABLET PO PRN (10:20)
[2019-02-10] MEDS ORDERED: ONDANSETRON 4 MG/2 ML VIAL IVP PRN (10:20)
--- NOTE | 2019-02-10 10:28 | OPERATIVE REPORT ---
Operative Report - General Procedure Date: 02/10/19 Planned Procedure: Left distal tibial nail interlock screw removal Pre-Op Diagnosis: Prominent retained hardware left distal tibia, broken screw left distal tib Procedure Performed: Left distal tibia hardware removal Post Op Diagnosis: Prominent retained hardware left distal tibia, broken screw left distal tib - Procedure Note Primary Surgeon: KENIA MCCALL Anesthesia Technique: General LMA Estimated Blood Loss (mL): 25 - Other Other Information/Narrative: Indications: 48-year-old male who is approximately 4 months status post left tibial intramedullary nailing for a closed distal tibia fracture, surgery performed at [facility] by Dr. John Odell, presented for routine follow-up to the [facility] orthopedics clinic. Radiographs obtained in clinic demonstrated problems with both distal interlock screws. The proximal most screw had broken, and the distal screw had backed out, to the point where the skin was tented. Clinical exam was consistent with this with easily palpable hardware at medially, with tenderness to palpation. Based on the prominence of the screw, and its current continued interaction with the IM nail, I was concerned for impending skin breakdown, ulceration, and exposure of the hardware. We discussed that should this occur, the entire implant would likely need to be removed at some point due to concerns of bacterial colonization and seeding. We discussed planned removal of the distal interlock screws, to decrease tension on the overlying skin and reduce the risk of ulceration. We discussed the risks of continued nonoperative treatment as well as risks of operative treatment to include pain, bleeding, infection, damage to nearby structures including nerves, blood vessels, tendons, lack of symptom relief, need for further surgery and/or revision of the implant, DVT, PE, stroke, and . Written consent was obtained. After discussion in clinic regarding the risk benefits and limitations of surgery, as well as the persistence of pain following surgery, the patient elected to proceed with surgical removal of the distal interlock screws. Tourniquet: Left thigh 250 mmHg, approximately 63 minutes Procedure in Detail: The patient was met in the preoperative holding on the day of the procedure. Operative extremity was signed. Consent was verified. He desired to proceed. They were brought to the operating room and surrendered to anesthesia. Supine position was used and bony prominences were padded. A small bump was placed underneath the ipsilateral buttock, and bone foam was used to elevate the operative leg. A nonsterile tourniquet was placed high on the left thigh; following this, standard prepping and draping was performed. A time out confirmed patient identification, laterality, procedure, equipment, allergies, antibiotics, and images. Following a timeout, an Esmarch bandage was used to exsanguinate the left lower extremity, and the tourniquet was inflated. An approximately 1.5 cm incision was marked out longitudinally overlying the prominent distal screw. A 15 blade was used to sharply incise the skin, and then gentle blunt spreading dissection was used to dissect the subcutaneous tissues taking care to look for any crossing vessels or nerves. The screw head was readily apparent, and cleared of soft tissue using a [place] elevator. The correct screwdriver from the tibial Versanail set was seated, and the screw was extracted without difficulty. Following extraction, the screw tract was curetted circumferentially, irrigated and suctioned. We then utilized the C arm to identify the start point of the more proximal distal interlock screw, and again an approximately 1.5 cm incision was marked on the skin. The skin was sharply incised using a 15 blade followed by gentle blunt dissection with longitudinal spreading of the underlying soft tissues until the screw head was contacted. Miguel retractors were placed anteriorly and posteriorly to deliver the screw head into the wound, this was then cleared of soft tissue using a [place] elevator, and the screwdriver was used to extract the screw. As expected, the screw was broken midshaft, and only a portion of the screw was removed. The screw track was then curetted and irrigated, and we turned our attention laterally. Fluoroscopy was used to identify the location of the distal fragment, and an approximately 4 cm incision was marked on the anterolateral leg, just anterior to the fibula and parallel with its anterior border. A 15 blade was used to incise the skin, and then tenotomy scissors were used to gently separate the anterior and posterior margins, taking care to look for crossing branches of the superficial peroneal nerve. The anterior margin of the fibula was palpated using a [place], and the fascia overlying it was sharply incised using a 15 blade down to bone. The soft tissues were then gently elevated off the anterior fibula and interosseous membrane using an elevator to expose the anterolateral surface of the tibia. An elevator was used to dissect the soft tissues off the anterolateral tibia, exposing the screw head. A Hohmann retractor was placed, and used to gently retract the anterior compartment medially. The screw fragment was cleared of overlying soft tissue, and grasped using a large needle pile driver. Counterclockwise turning allowed extraction of the screw fragment. The screw tract was curetted from the lateral side and again irrigated. Fluoroscopy was used to confirm complete removal of the screw with no residual intercalary fragment observed. All wounds were again irrigated. Final radiographs were taken. .Valgus and varus stress was then placed on the ankle under live fluoroscopy, without any observed motion at the fracture site, or motion of the nail with relation to the distal tibia. The medial wounds were closed in layered fashion using buried 2-0 Vicryl deep, and interrupted 3-0 nylon for the skin and alternating horizontal and vertical mattress fashion. A wet Ray-Ava was packed into the lateral incision, and the tourniquet was let down, pressure was held on the lateral incision for approximately 5 minutes, and then the Ray-Ava was extracted, and the wound examined. There was expected bleeding from the now empty screw holes, without evidence of arterial injury. The dorsalis pedis pulse was readily palpable. The lateral incision was then again irrigated and closed in layers using interrupted 2-0 Vicryl for the fascia, and interrupted 3-0 nylon for the skin. 30 mL of half percent Marcaine with epinephrine were infiltrated into the medial and lateral soft tissues for postoperative pain control. The wounds were dressed with Xeroform, 4 x 4 gauze, and Tegaderm. A gently compressive Thanh wrap was applied followed by a cam boot. Anesthesia was reversed the patient was transferred to the PACU in stable condition. Postoperatively they will be weightbearing as tolerated in the cam boot, the dressing can be removed in 3 days. Following dressing removal in 3 days vision is been instructed to place Band-Aids over the incision, and apply the provided DAVE hose to that leg. He will have a aspirin for 30 days for DVT prophylaxis. He will follow-up with us in 10-14 days for planned suture removal.
[2019-02-10 11:55] VITALS: BP 135/90
--- NOTE | 2019-02-10 12:09 | XRAY Report ---
Reason: S/P HARDWARE REMOVAL Procedure Date: 02/10/2019 Accession Number: [id number] / [id number] Procedure: XR - Tib/Fib LT CPT Code: FULL RESULT: EXAM: LEFT TIBIA/FIBULA INTRAOPERATIVE FLUOROSCOPIC RADIOGRAPHY EXAM DATE: 02/10/2019 09:52 AM. CLINICAL HISTORY: Procedure for hardware removal. COMPARISON: LT TIBIA NAILING 09/28/2018 1:31 PM HARDWARE REMOVAL 02/10/2019 7:16 AM. TECHNIQUE: 5 intraoperative fluoroscopic spot views. IMPRESSION: 1. Fluoroscopic time reported as 13 seconds. 2. Please see procedure report for description of the hardware removal from the left tibia/fibula. RADIA
--- NOTE | 2019-02-10 16:33 | XRAY Report ---
Reason: hardware removal- tibia Procedure Date: 02/10/2019 Accession Number: [id number] / [id number] Procedure: FL - OR C-Arm Procedure CPT Code: FULL RESULT: EXAM: FLUOROSCOPIC GUIDANCE EXAM DATE: 02/10/2019 09:51 AM. CLINICAL HISTORY: Hardware removal- tibia. COMPARISON: LT TIBIA NAILING 09/28/2018 1:31 PM HARDWARE REMOVAL 02/10/2019 7:16 AM. IMPRESSION: Fluoroscopic guidance provided for tibial hardware removal. Total fluoroscopy time: 13 seconds. Number of images: 5. RADIA
== END 2019-02-10 05:59 | disposition home or self-care (01) ==
LOC: SDS 05:58
PROVIDERS: ATTEND Orthopaedic Surgery
PROC: 0QPH04Z Removal of Internal Fixation Device from Left Tibia, Open Approach (ICD-10-PCS; principal; 2019-02-10 07:30)
DX: T84.117A Breakdown (mechanical) of internal fixation device of bone of left lower leg, initial encounter (principal); T84.84XA Pain due to internal orthopedic prosthetic devices, implants and grafts, initial encounter; T84.127A Displacement of internal fixation device of bone of left lower leg, initial encounter; I10 Essential (primary) hypertension
CPT/HCPCS: 20680; 73590; J0690; J7120

== ENCOUNTER 2019-04-07 11:18 | Outpatient (CLI) | payer OTHER | END 2019-04-07 11:19 | disposition home or self-care (01) | LOC: DI 11:18 | PROVIDERS: ATTEND Family Medicine | DX: R94.31 Abnormal electrocardiogram [ECG] [EKG] (principal); I51.7 Cardiomegaly | CPT/HCPCS: 93306 ==

== ENCOUNTER 2019-09-29 06:41 | Day surgery (SDC) | payer OTHER ==
[~2019-09-29 06:41] MED LIST: CEFAZOLIN SODIUM IN 0.9 % NACL 2 GM/100 ML BAG IV ONE
[2019-09-29] MEDS ORDERED: LACTATED RINGERS 1,000 ML IV ONE (07:06)
[2019-09-29] MEDS ORDERED: LIDOCAINE 1%-EPI 1:100000 20 ML MDV ONE (07:12)
[2019-09-29] MEDS ORDERED: BUPIVACAINE 0.25% PF 30 ML VIAL ONE (07:20)
--- NOTE | 2019-09-29 07:35 | ANESTHESIA ---
Pre-Anesthesia VS, & Labs - Diagnosis L tibial symptomatic hardware - Procedure L tibial hardwear removal Vital Signs: Temp Pulse Resp BP Pulse Ox 36.5 C 67 18 129/89 H 97 09/29/19 06:30 09/29/19 06:30 09/29/19 06:30 09/29/19 06:30 09/29/19 06:30 Height 5 ft 9 in Weight (kg) 82.55 kg Body Mass Index 25.0 Home Medications and Allergies Amlodipine Besylate 10 mg PO DAILY 09/28/18 Trazodone HCl 50 mg PO QPM 09/28/18 Acetaminophen [Tylenol] 1,000 mg PO QID PRN 02/10/19 Ascorbic Acid [Vitamin C] 500 mg PO 06/29/19 Cholecalciferol (Vitamin D3) [Vitamin D3] 2,000 unit PO 06/29/19 Naltrexone HCl 50 mg PO 06/29/19 Allergies/Adverse Reactions: Allergies Allergy/AdvReac Type Severity Reaction Status Date / Time No Known Drug Allergies Allergy Verified 09/27/19 14:54 Anes History & Medical History - Anesthetic History Anesthesia Complications: reports: No previous complications Family history of Anesthesia Complications: Denies Family history of Malignant Hyperthermia: Denies - Medical History Cardiovascular: reports: Hypertension Pulmonary: reports: Sleep apnea, CPAP use Gastrointestinal: reports: None Urinary: reports: None Neuro: reports: None Musculoskeletal: reports: Other Endocrine/Autoimmune: reports: None Blood Disorders: reports: None Skin: reports: None Smoking Status: Never smoker - Surgical History General: Other Eyes Ears Nose Throat (EENT): Other Orthopedic: Other Exam General: Alert, Oriented x3, Cooperative, No acute distress Dental: WNL Mouth Openin Fingerbreadth Neck Mobility: Normal Mallampati classification: II Thyromental Distance: greater than 6 cm Respiratory: Lungs clear Cardiovascular: Regular rate, No murmurs Mental/Cognitive Status: Alert/Oriented X3 Plan Anesthesia Type: MAC Consent for Procedure(s) Verified and Reviewed: Yes Code Status: Attempt Resuscitation ASA classification: 2-Mild systemic disease Is this case an emergency?: No
[2019-09-29] MEDS ORDERED: LIDOCAINE 1%-EPI 1:100000 20 ML MDV SUBQ ONE (07:40)
[2019-09-29] MEDS ORDERED: BUPIVACAINE 0.25% PF 30 ML VIAL SUBQ ONE (08:06)
[2019-09-29] MEDS ORDERED: ONDANSETRON 4 MG/2 ML VIAL IVP PRN (08:30)
[2019-09-29] MEDS ORDERED: IBUPROFEN 800 MG TABLET PO PRN (08:33)
--- NOTE | 2019-09-29 08:45 | OPERATIVE REPORT ---
Operative Report - General Procedure Date: 09/29/19 Planned Procedure: Left tibial nail proximal interlock screw removal Pre-Op Diagnosis: Left tibia retained symptomatic hardware Procedure Performed: Left tibial nail proximal interlock screw removal Post Op Diagnosis: Left tibia retained symptomatic hardware - Procedure Note Primary Surgeon: KENIA MCCALL Secondary Surgeon: ADDIE DUNBAR Anesthesia Technique: Local, MAC Estimated Blood Loss (mL): 5 - Other Other Information/Narrative: Indications: 49-year-old male who is approximately 11 months status post left tibial intramedullary nailing for a closed distal tibia fracture, surgery performed at [facility] by Dr. John Odell, presented with a symptomatic distalmost proximal interlock screw in Apr 2019. He was scheduled for surgery in early Jul 2019 which was rescheduled due to a jaw fracture sustained during OMFS surgery and need for antibiotics. He was rescheduled for mid/late July 2019 but this was cancelled due to the coronavirus pandemic. He was last seen in clinic earlier this week, with further backing out of the screw and thinning of the skin. Clinical exam was consistent with this with easily palpable hardware at medially, with tenderness to palpation. Based on the prominence of the screw and continued pain, I was concerned for further backing out, eventually leading to skin breakdown, ulceration, and exposure of the hardware. We discussed that should this occur, the entire implant would likely need to be removed at some point due to concerns of bacterial colonization and seeding. We discussed planned removal of the interlock screw, to decrease tension on the overlying skin and reduce the risk of ulceration and improve pain. We discussed the risks of continued nonoperative treatment as well as risks of operative treatment to include pain, bleeding, infection, damage to nearby structures including nerves, blood vessels, tendons, lack of symptom relief, need for further surgery and/or revision of the implant, DVT, PE, stroke, and . Written consent was obtained. After discussion in clinic regarding the risk benefits and limitations of surgery, as well as the persistence of pain following surgery, the patient elected to proceed with surgical removal of the symptomatic interlock screw. Tourniquet: Left thigh not used Procedure in Detail: The patient was met in the preoperative holding on the day of the procedure. Operative extremity was signed. Consent was verified. He desired to proceed. A timeout was conducted and 20mL of 1% lidocaine with epinephrine was injected around the screw head to the bone. Following injection, he was brought to the operating room and MAC was initiated. Supine position was used and bony prominences were padded. A nonsterile tourniquet was placed high on the left thigh; following this, standard prepping and draping was performed. A time out confirmed patient identification, laterality, procedure, equipment, allergies, antibiotics, and images. Following a timeout, an approximately 1.5 cm incision was marked out longitudinally overlying the prominent screw. A 15 blade was used to sharply incise the skin, and then gentle blunt spreading dissection was used to dissect the subcutaneous tissues taking care to look for any crossing vessels or nerves. The screw head was localized, and cleared of soft tissue using a [place] elevator and electrocautery. The correct screwdriver from the tibial Versanail set was seated, and the screw was extracted without difficulty. Following extraction, the screw tract was irrigated and suctioned. The medial wounds were closed in layered fashion using buried 2-0 Vicryl deep, and interrupted 3-0 nylon for the skin in horizontal mattress fashion. 10mL of 0.25% plain marcaine was injected for post-op pain control. A sterile dressing was applied followed by an Thanh wrap. Anesthesia was reversed the patient was transferred to the PACU in stable condition. Postoperatively they will be weightbearing as tolerated, the dressing can be removed in 3 days. Following dressing removal in 3 days vision is been instructed to place Band-Aids over the incision. He will follow-up with us in 10-14 days for planned suture removal.
[2019-09-29 09:41] VITALS: BP 122/85
--- NOTE | 2019-09-29 18:37 | XRAY Report ---
Reason: s/p interlock screw removal proximal tibia Procedure Date: 09/29/2019 Accession Number: [id number] / [id number] Procedure: XR - Knee 2 View LT CPT Code: Final Report FULL RESULT: EXAM: LEFT KNEE RADIOGRAPHY EXAM DATE: 09/29/2019 08:59 AM. CLINICAL HISTORY: S/p interlock screw removal proximal tibia. COMPARISON: None. TECHNIQUE: 3 views. FINDINGS: Bones: Interval removal of interlock screw from proximal tibia with screw tract noted. Well-positioned intramedullary tibial alayna and proximal screw. Joints: Normal. No effusion. No subluxations. Soft Tissues: Normal. No soft tissue swelling. IMPRESSION: No acute displaced fracture. Interval removal of interlock screw from proximal tibia with screw tract. Rest of the hardware remains well-positioned. No knee joint effusion. RADIA
== END 2019-09-29 06:42 | disposition home or self-care (01) ==
LOC: SDS 06:41
PROVIDERS: ATTEND Orthopaedic Surgery
PROC: 0QPH04Z Removal of Internal Fixation Device from Left Tibia, Open Approach (ICD-10-PCS; principal; 2019-09-29 07:30)
DX: T84.127A Displacement of internal fixation device of bone of left lower leg, initial encounter (principal); T84.84XA Pain due to internal orthopedic prosthetic devices, implants and grafts, initial encounter; G47.30 Sleep apnea, unspecified; I10 Essential (primary) hypertension

== ENCOUNTER 2020-09-30 08:00 | Outpatient (CLI) | payer OTHER ==
--- NOTE | 2020-09-30 15:43 | XRAY Report ---
PROCEDURE: Tib/Fib LT INDICATIONS: FX OF SHAFT OF L TIBIA TECHNIQUE: 2 views of the tibia and fibula were acquired. COMPARISON: X-ray lower extremity 09/28/2018 FINDINGS: Bones: No fractures or dislocations. No suspicious bony lesions. Intramedullary alayna fixation is pr esent of the tibia. Hardware appears intact. Old distal tibial fracture and proximal fibular fracture s are noted. Soft tissues: No suspicious soft tissue calcifications or masses. IMPRESSION: Stable appearance of the tibial fixation with old tibia and tibial fractures. Reviewed by: Eva Mendez MD on 09/30/2020 3:42 PM PDT Approved by: Eva Mendez MD on 09/30/2020 3:42 PM PDT Station ID: [id number]
== END 2020-09-30 23:59 | disposition home or self-care (01) ==
LOC: DI.N 08:00
PROVIDERS: ATTEND Orthopaedic Surgery
DX: S82.202D Unspecified fracture of shaft of left tibia, subsequent encounter for closed fracture with routine healing (principal)

== ENCOUNTER 2020-10-10 13:00 | Outpatient (CLI) | payer OTHER | END 2020-10-10 13:01 | disposition home or self-care (01) | LOC: LAB.N 13:00 | PROVIDERS: ATTEND Orthopaedic Surgery | DX: Z01.812 Encounter for preprocedural laboratory examination (principal); Z20.822 Contact with and (suspected) exposure to COVID-19 ==

== ENCOUNTER 2020-10-14 16:21 | Outpatient (CLI) | payer OTHER | END 2020-10-14 16:22 | disposition home or self-care (01) | LOC: LAB.N 16:21 | PROVIDERS: ATTEND Physician Assistant | DX: Z01.812 Encounter for preprocedural laboratory examination (principal); Z20.822 Contact with and (suspected) exposure to COVID-19 ==

== ENCOUNTER 2020-10-16 08:03 | Day surgery (SDC) | payer OTHER ==
[~2020-10-16 08:03] MED LIST changes: -CEFAZOLIN SODIUM IN 0.9 % NACL 2 GM/100 ML BAG IV ONE; +ceFAZolin 2 GM/50 ML 2 GM/50 ML BAG IV ONE
--- OUTSIDE RECORDS SUMMARY | 2020-10-16 08:06 | EXTERNAL MEDICAL SUMMARY RPT | Continuity of Care Document ---
:1970 Demographics Phone Unavailable Preferred Language Burmese Marital Status Unknown Moravian Affiliation Unknown Race Unknown Ethnic Group Unknown Author Organization [facility] Address [address] [place] [address] Phone Problems date description facility [id number] Pain in left lower leg [facility]
[2020-10-16] MEDS ORDERED: LACTATED RINGERS 1,000 ML IV ONE ×2 (08:07→12:36)
[2020-10-16] MEDS ORDERED: MIDAZOLAM 2 MG/2 ML VIAL ONE (08:44)
[2020-10-16] MEDS ORDERED: PROPOFOL 200 MG/20 ML VIAL IVP ONE (08:44)
[2020-10-16] MEDS ORDERED: LIDOCAINE-MPF 2% 5 ML VIAL ONE (08:44)
[2020-10-16] MEDS ORDERED: fentaNYL 100 MCG/2 ML VIAL ONE ×2 (08:44→10:40)
--- NOTE | 2020-10-16 08:45 | ANESTHESIA ---
Pre-Anesthesia VS, & Labs - Diagnosis painful hardware - Procedure LLE hardware removal Vital Signs: Temp Pulse Resp BP Pulse Ox 36.6 C 74 12 136/98 H 96 10/16/20 08:09 10/16/20 08:29 10/16/20 08:09 10/16/20 08:29 10/16/20 08:09 Height: 5 ft 9 in Weight (kg): 72.1 kg Body Mass Index: 23.4 BMI Classification: Healthy weight - NPO >8 hours Home Medications and Allergies Home Medications: Ambulatory Orders Ibuprofen [Motrin] 1 tablet PO Q8H PRN 10/10/20 amLODIPine [Norvasc] 5 mg PO DAILY 10/10/20 Ibuprofen [Motrin] 1 tablet PO Q8H PRN 10/10/20 amLODIPine [Norvasc] 5 mg PO DAILY 10/10/20 Allergies/Adverse Reactions: Allergies Allergy/AdvReac Type Severity Reaction Status Date / Time No Known Drug Allergies Allergy Verified 09/27/19 14:54 Anes History & Medical History - Anesthetic History Anesthesia Complications: reports: No previous complications Family history of Anesthesia Complications: Denies Family history of Malignant Hyperthermia: Denies - Medical History Cardiovascular: reports: Hypertension Pulmonary: reports: Sleep apnea, CPAP use Gastrointestinal: reports: None Urinary: reports: None Neuro: reports: None Musculoskeletal: reports: None Endocrine/Autoimmune: reports: None Blood Disorders: reports: None Skin: reports: None Smoking Status: Never smoker - Surgical History General: reports: Other Eyes Ears Nose Throat (EENT): reports: Other Orthopedic: reports: Other Exam General: Alert, Oriented x3 Dental: WNL Mouth Openin Fingerbreadth Neck Mobility: Normal Mallampati classification: II Thyromental Distance: 4-6 cm Respiratory: Lungs clear Cardiovascular: Regular rate Plan Anesthesia Type: General Consent for Procedure(s) Verified and Reviewed: Yes Code Status: Attempt Resuscitation ASA classification: 2-Mild systemic disease Is this case an emergency?: No
[2020-10-16] MEDS ORDERED: MORPHINE 2 MG/ML CARPUJECT IVP PRN (08:46)
[2020-10-16] MEDS ORDERED: ePHEDrine 50 MG/ML VIAL IVP PRN (08:46)
[2020-10-16] MEDS ORDERED: HYDROmorphone 0.5 MG/0.5 ML SYRINGE IVP PRN (08:46)
[2020-10-16] MEDS ORDERED: fentaNYL 100 MCG/2 ML VIAL IVP PRN (08:46)
[2020-10-16] MEDS ORDERED: ONDANSETRON 4 MG/2 ML VIAL IVP PRN (08:46)
[2020-10-16] MEDS ORDERED: ATROPINE ABBOJECT 1 MG/10 ML SYRINGE IVP PRN (08:46)
[2020-10-16] MEDS ORDERED: NALOXONE 0.4 MG/ML VIAL IVP PRN (08:46)
[2020-10-16] MEDS ORDERED: METOCLOPRAMIDE 10 MG/2 ML VIAL IVP PRN (08:46)
[2020-10-16] MEDS ORDERED: LACTATED RINGERS 1,000 ML IV SCH (09:00)
[2020-10-16] MEDS ORDERED: BUPIVACAINE 0.5%-EPI 1:200000 PF 30 ML VIAL ONE (09:23)
[2020-10-16] MEDS ORDERED: DEXAMETHASONE 4 MG/ML VIAL ONE (10:22)
[2020-10-16] MEDS ORDERED: ONDANSETRON 4 MG/2 ML VIAL ONE (10:22)
[2020-10-16] MEDS ORDERED: KETOROLAC 30 MG/ML VIAL ONE (10:22)
[2020-10-16] MEDS ORDERED: BUPIVACAINE 0.5%-EPI 1:200000 PF 30 ML VIAL SUBQ ONE ×2 (10:28→12:06)
[2020-10-16] MEDS ORDERED: HYDROmorphone 1 MG/ML CARPUJECT ONE (11:11)
[2020-10-16] MEDS ORDERED: BACITRACIN ZINC OINT 1 PACKET TOP ONE (11:45)
[2020-10-16] MEDS ORDERED: BACITRACIN ZINC OINT 14 GM TOP ONE (11:46)
--- NOTE | 2020-10-16 12:18 | OPERATIVE REPORT ---
Operative Report - General Procedure Date: 10/16/20 Planned Procedure: Removal of tibial alayna left tibia Pre-Op Diagnosis: Pain left leg, secondary to previous internal fixation Procedure Performed: Removal of tibial alayna and proximal locking screw left tibia Post Op Diagnosis: Same as preoperative diagnosis - Procedure Note Primary Surgeon: Phong Sanchez MD Secondary Surgeon: Julius Kong Anesthesia Provider: Martina Lombardo CRNA Anesthesia Technique: General ET tube Estimated Blood Loss (mL): 25 Indications: This is a 50-year-old gentleman who had a distal tibia and proximal fibular fracture just a little over 2 years ago. His fracture of the left tibia was treated with a static locked intramedullary nail. His fracture is healed and he is ambulating but he has pain the entire length of the left lower leg that has persisted without improvement. He has had 3 of the 4 previously inserted locking screws removed. His preoperative x-rays suggest full healing of his tibial and fibular fractures to left leg Findings: There was no sign of loosening to his proximal medial locking screw or to the tibial nail. The tibial nail was covered with a cap of bone which had to be removed to expose the proximal tibial nail for extraction. Complications: None - Other Other Information/Narrative: This is a 50-year-old gentleman brought to the operative room table and placed in the supine position with the left knee over a triangular positioner to facilitate knee flexion. The left lower extremity was prepped and draped in a sterile manner in the usual fashion after satisfactory general anesthesia had been achieved. A pneumatic tourniquet was applied to the proximal left thigh over cast padding. A C arm image intensifier was used intermittently and was covered with a sterile transparent drape. The left leg was exsanguinated and the pneumatic tourniquet was elevated to 250 mmHg left thigh. The previous medial longitudinal scar was reopened. Full-thickness skin flaps were carefully developed exposing the patellar tendon. At the distal end of the incision below the patellar tendon insertion, the proximal medial locking screw was identified. The screw head was exposed and the screw was then removed with the appropriate size screwdriver. Next the patellar tendon was split and there is no sign of the alayna. A 4.0 mm drill bit was used to make a airline pilot flight instructor hole in the anterior tibia and a guidepin was inserted down the medullary canal. The C-arm image intensifier was then used in AP and lateral images and show that the alayna was just anterior to the guidepin. A rongeur was then used to expose the cortex more anteriorly and the alayna was uncovered that I been covered with bone overgrowth. The threads appeared to be intact. The extraction device was carefully threaded into the proximal threads of the tibial nail and the alayna was then removed in a retrograde fashion with a slap hammer and alayna extension. The alayna was not loose. There was some bleeding from the medullary canal. The patellar tendon defect was closed with 0V lock suture. The subcutaneous tissue was closed with 2-0 Vicryl and the skin was closed with 3-0 subcuticular Monocryl and Dermabond. The C-arm image intensifier was used to confirm internal fixation removal. There is no sign of fractures other than the distal tibial shaft fracture which was healed. The left tibia was stable to stress. A sterile dressing with cast padding and Thanh wrap was applied to the left knee area. 30 cc of half percent Marcaine with epinephrine was injected into the knee joint for postop pain relief. Physician nursing home assistant administrator was utilized to help with the exposure, alayna extraction, wound closure and dressing.
[2020-10-16] MEDS ORDERED: KETOROLAC 15 MG/ML VIAL IVP STA (12:40)
[2020-10-16] MEDS ORDERED: oxyCODONE 5 MG TABLET PO PRN (12:40)
--- NOTE | 2020-10-16 13:03 | XRAY Report ---
PROCEDURE: OR C-Arm Procedure INDICATIONS: hardware removal TECHNIQUE: Fluoroscopic guidance for intraoperative procedure was provided. 5 fluoroscopic spot films and 11 seconds of fluoroscopic time utilized. COMPARISON: None. FINDINGS: Low-resolution fluoroscopic spot films showing interval removal of tibial alayna in progress. IMPRESSION: Fluoroscopic guidance Reviewed by: Jerry Aguirre MD on 10/16/2020 12:01 PM [facility] Approved by: Jerry Aguirre MD on 10/16/2020 12:01 PM [facility] Station ID: [id number]
--- NOTE | 2020-10-16 13:27 | ANESTHESIA POST OP EVALUATION ---
Anesthesia Post Eval - Post Anesthesia Eval Vitals: Last Vital Signs Temp 37.2 C 10/16/20 13:10 Pulse 90 10/16/20 13:10 Resp 12 10/16/20 13:10 BP 123/91 H 10/16/20 13:10 Pulse Ox 93 10/16/20 13:10 CV Function Including HR & BP: Stable Pain Control: Satisfactory Nausea & Vomiting: Negative Mental Status: Baseline Respiratory Status: Airway Patent Hydration Status: Satisfactory Anesthesia Complications: None
[2020-10-16] MEDS ORDERED: oxyCODONE 5 MG TABLET ONE (13:35)
[2020-10-16 14:19] VITALS: BP 111/73
== END 2020-10-16 08:04 | disposition home or self-care (01) ==
LOC: SDS 08:03
PROVIDERS: ATTEND Orthopaedic Surgery
DX: T84.84XA Pain due to internal orthopedic prosthetic devices, implants and grafts, initial encounter (principal); I10 Essential (primary) hypertension; G47.30 Sleep apnea, unspecified
CPT/HCPCS: 20680; A9270; J0690; J1170; J7120

== ENCOUNTER 2020-11-08 08:43 | Outpatient (CLI) | payer OTHER | END 2020-11-08 08:44 | disposition critical access hospital (66) | LOC: EMS 08:43 | DX: R40.4 Transient alteration of awareness (principal) | CPT/HCPCS: A0425; A0429 ==

== ENCOUNTER 2020-11-08 09:08 | Emergency (ER) | payer OTHER ==
--- NOTE | 2020-11-08 09:21 | ED Physician Documentation ---
PD HPI ALTERED MENTAL STATUS - Stated complaint Stated Complaint: SYNCOPE - History obtained from History obtained from: EMS - Additional information Additional information: 50-year-old gentleman presents by ambulance for altered mental status. He had hardware removal from his leg on October 16. Reportedly was stumbling around and then fell without injury after taking an oxycodone this morning. All of the history is from EMS. Blood sugar prior to arrival was normal. Narcan was not trialed. Pulse oximetry's have been okay. Review of Systems Unable to obtain: AMS, Intoxicated PD PAST MEDICAL HISTORY - Past Medical History Cardiovascular: Hypertension Respiratory: Sleep apnea, CPAP use Neuro: None Endocrine/Autoimmune: None GI: None : None HEENT: None Psych: Other Musculoskeletal: None Derm: None - Past Surgical History Past Surgical History: No General: Other Ortho: Other HEENT: Other - Present Medications Home Medications: Ambulatory Orders Medication Instructions Recorded Confirmed Ibuprofen [Motrin] 1 tablet PO Q8H PRN 10/10/20 11/08/20 amLODIPine [Norvasc] 10 mg PO DAILY 10/10/20 11/08/20 Ascorbic Acid [Vitamin C] 1,000 mg PO DAILY 11/08/20 11/08/20 Gabapentin [Neurontin] 100 mg DAILY 11/08/20 11/08/20 Non Formulary 1 tab PO DAILY 11/08/20 11/08/20 oxyCODONE [Roxicodone] 5 mg PO Q6HR PRN 11/08/20 11/08/20 - Allergies Allergies/Adverse Reactions: Allergies Allergy/AdvReac Type Severity Reaction Status Date / Time No Known Drug Allergies Allergy Verified 11/08/20 09:33 - Social History Does the pt smoke?: No Smoking Status: Never smoker Does the pt drink ETOH?: No Does the pt have substance abuse?: No - Immunizations Immunizations are current?: Yes PD ED PE NORMAL - Vitals Vital signs reviewed: Yes - General General: No acute distress, Other (Intermittently opens his eyes to loud voice or painful stimulus. No verbal response. Does seem to have significant nystagmus. Small but not pinpoint pupils.) - Neck Neck: Supple, no meningeal sign, No bony TTP - Cardiac Cardiac: RRR, No murmur - Respiratory Respiratory: No respiratory distress, Clear bilaterally - Abdomen Abdomen: Non tender - Back Back: No CVA TTP, No spinal TTP - Derm Derm: Normal color, Warm and dry - Extremities Extremities: Other (Healing surgical incisions to the left lower extremity; , Does not seem to respond by exhibiting grimacing etc. to ranging all extremities.) - Neuro Eye Opening: To Pain Motor: Localizes to Pain Verbal: None GCS Score: 8 Results - Vitals Vitals: Vital Signs - 24 hr 11/08/20 11/08/20 11/08/20 09:18 10:03 10:30 Temperature 36.9 C Heart Rate 86 77 76 Respiratory 16 10 L 12 Rate Blood Pressure 117/87 H 134/97 H 113/80 O2 Saturation 96 100 99 11/08/20 11/08/20 11/08/20 11:00 11:30 12:05 Temperature Heart Rate 82 93 102 H Respiratory 13 21 15 Rate Blood Pressure 139/102 H 123/91 H 151/115 H O2 Saturation 96 98 97 11/08/20 11/08/20 11/08/20 12:18 12:30 13:00 Temperature Heart Rate 104 H 98 92 Respiratory 18 18 18 Rate Blood Pressure 155/115 H 145/109 H 152/108 H O2 Saturation 95 96 96 11/08/20 11/08/20 11/08/20 13:30 14:00 14:30 Temperature 36.7 C 36.8 C 36.7 C Heart Rate 90 72 66 Respiratory 16 18 16 Rate Blood Pressure 155/120 H 115/64 136/89 H O2 Saturation 98 98 98 11/08/20 11/08/20 11/08/20 14:58 15:00 15:30 Temperature 36.9 C Heart Rate 75 70 76 Respiratory 21 19 18 Rate Blood Pressure 136/89 H 131/89 H 132/89 H O2 Saturation 98 98 100 11/08/20 11/08/20 11/08/20 16:00 16:30 17:00 Temperature Heart Rate 98 91 94 Respiratory 15 12 18 Rate Blood Pressure 142/92 H 142/95 H 130/81 H O2 Saturation 99 96 95 11/08/20 11/08/20 11/08/20 17:46 18:00 18:30 Temperature 36.7 C 36.6 C Heart Rate 101 H 75 73 Respiratory 14 17 17 Rate Blood Pressure 142/116 H 150/94 H 139/92 H O2 Saturation 95 94 96 Oxygen O2 Source Room air - Labs Labs: Laboratory Tests 11/08/20 11/08/20 11/08/20 09:57 09:57 09:57 WBC 5.3 RBC 4.24 L Hgb 12.4 L Hct 35.0 L MCV 82.5 MCH 29.2 MCHC 35.4 RDW 14.6 Plt Count 198 MPV 10.2 Neut # (Auto) 2.4 Lymph # (Auto) 2.4 [place] # (Auto) 0.4 Eos # (Auto) 0.0 Baso # (Auto) 0.0 Absolute Nucleated RBC 0.00 Nucleated RBC % 0.0 Sodium 143 Potassium 3.9 Chloride 104 Carbon Dioxide 28 Anion Gap 11.0 BUN 15 Creatinine 1.0 Estimated GFR (MDRD) 97 Glucose 104 H Calcium 8.6 Total Bilirubin 0.5 AST 62 H ALT 33 Alkaline Phosphatase 74 Total Protein 8.2 Albumin 4.1 Globulin 4.1 Albumin/Globulin Ratio 1.0 Lipase 19 L TSH 0.33 L Urine Color Urine Clarity Urine pH Ur Specific Avera Urine Protein Urine Glucose (UA) Urine Ketones Urine Occult Blood Urine Nitrite Urine Bilirubin Urine Urobilinogen Ur Leukocyte Esterase Ur Microscopic Review Urine Culture Comments Salicylates < 6.0 Urine Opiates Screen Ur Oxycodone Screen Urine Methadone Screen Ur Propoxyphene Screen Acetaminophen < 10 L Ur Barbiturates Screen Ur Tricyclics Screen Ur Phencyclidine Scrn Ur Amphetamine Screen U Methamphetamines Scrn U Benzodiazepines Scrn Urine Cocaine Screen U Cannabinoids Screen Ethyl Alcohol 404.8 11/08/20 14:02 WBC RBC Hgb Hct MCV MCH MCHC RDW Plt Count MPV Neut # (Auto) Lymph # (Auto) [place] # (Auto) Eos # (Auto) Baso # (Auto) Absolute Nucleated RBC Nucleated RBC % Sodium Potassium Chloride Carbon Dioxide Anion Gap BUN Creatinine Estimated GFR (MDRD) Glucose Calcium Total Bilirubin AST ALT Alkaline Phosphatase Total Protein Albumin Globulin Albumin/Globulin Ratio Lipase TSH Urine Color YELLOW Urine Clarity CLEAR Urine pH 6.0 Ur Specific Avera 1.020 Urine Protein TRACE Urine Glucose (UA) NEGATIVE Urine Ketones NEGATIVE Urine Occult Blood NEGATIVE Urine Nitrite NEGATIVE Urine Bilirubin NEGATIVE Urine Urobilinogen 0.2 (NORMAL) Ur Leukocyte Esterase NEGATIVE Ur Microscopic Review NOT INDICATED Urine Culture Comments NOT INDICATED Salicylates Urine Opiates Screen NEGATIVE Ur Oxycodone Screen POSITIVE H Urine Methadone Screen NEGATIVE Ur Propoxyphene Screen NEGATIVE Acetaminophen Ur Barbiturates Screen NEGATIVE Ur Tricyclics Screen NEGATIVE Ur Phencyclidine Scrn NEGATIVE Ur Amphetamine Screen NEGATIVE U Methamphetamines Scrn NEGATIVE U Benzodiazepines Scrn NEGATIVE Urine Cocaine Screen NEGATIVE U Cannabinoids Screen NEGATIVE Ethyl Alcohol - Rads (name of study) Ct Head and Cspine Radiology: EMP read contemporaneously (Normal) PD MEDICAL DECISION MAKING - ED course ED course: 50-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 His blood alcohol was a little over 400. He did reportedly potentially have a head injury and CT of the head and C- spine were done and negative. His chief was at the bedside and with time the patient became more awake and talking but clearly slurring his words. He did agree to let his chief know why he had passed out this morning. He started to endorse some vague suicidal ideation and as such we will have to hold him until he is sober and reevaluate his suicidal ideation. Specifically stated "I just want to go away and ." His chief was involved in at the bedside, Chito Epstein, he would like to be notified when the patient is released. Or if he is transferred to [facility] can arrange for his Sea-bag and fatigues etc. His phone number is [phone]. Care to Dr Abernathy at shift [facility], patient should be sober about 11pm. Reeval for SI and safety then. Departure - Departure Clinical Impression: Alcohol intoxication delirium
[2020-11-08 10:02] LABS: BASOPHILS % (AUTO) 0.4 %; EOSINOPHILS % (AUTO) 0.4 %; HGB - HEMOGLOBIN 12.4 g/dL (14.0-18.0); LYMPHOCYTES # (AUTO) 2.4 10^3/uL (1.5-3.5); LYMPHOCYTES % (AUTO) 46.2 %; MEAN CORPUSCULAR HEMOGLOBIN 29.2 pg (27.0-31.0); MEAN CORPUSCULAR HGB CONC 35.4 g/dL (32.0-36.0); MEAN CORPUSCULAR VOLUME 82.5 fL (80.0-94.0); MEAN PLATELET VOLUME 10.2 fL (7.4-11.4); MONOCYTES # (AUTO) 0.4 10^3/uL (0.0-1.0); MONOCYTES % (AUTO) 7.6 %; NEUTROPHILS # (AUTO) 2.4 10^3/uL (1.5-6.6); NEUTROPHILS % (AUTO) 45.2 %; PLT - PLATELET COUNT 198 10^3/uL (130-450); RED BLOOD COUNT 4.24 10^6/uL (4.70-6.10); RED CELL DISTRIBUTION WIDTH 14.6 % (12.0-15.0); WHITE BLOOD COUNT 5.3 x10^3/uL (4.8-10.8)
--- NOTE | 2020-11-08 10:17 | CT Report ---
PROCEDURE: CERVICAL SPINE WO INDICATIONS: head injury, altered TECHNIQUE: Noncontrast 3 mm thick sections acquired from the skull base to the T4 level. Sagittal and coronal r eformats were then constructed. For radiation dose reduction, the following was used: automated exp osure control, adjustment of mA and/or kV according to patient size. COMPARISON: None. FINDINGS: Image quality: Excellent. Bones: No fractures or dislocations. Visualized superior ribs are intact. Soft tissues: Prevertebral soft tissues are normal in thickness. No paravertebral hematomas. No ap ical pneumothoraces. IMPRESSION: No acute cervical spine fracture or dislocation. Reviewed by: Murphy Santoyo MD on 11/08/2020 10:16 AM PDT Approved by: Murphy Santoyo MD on 11/08/2020 10:16 AM PDT Station ID: [id number]
--- OUTSIDE RECORDS SUMMARY | 2020-11-08 10:19 | EXTERNAL MEDICAL SUMMARY RPT | Continuity of Care Document ---
:1970 Demographics Phone Unavailable Preferred Language Austrian Marital Status Unknown Restoration Affiliation Unknown Race Unknown Ethnic Group Unknown Author Organization [facility] Address [address] [place] [address] Phone Allergies Encounters Medications Problems date description facility [id number] Pain in left lower [facility] Results
[2020-11-08 10:21] LABS: ACETAMINOPHEN < 10 ug/mL (10-30); ALBUMIN 4.1 g/dL (3.2-5.5); ALKALINE PHOSPHATASE 74 IU/L (42-121); ALT ALANINE AMINOTRANSFERASE 33 IU/L (10-60); AST ASPARTATE AMINOTRANSFERASE 62 IU/L (10-42); BILIRUBIN,TOTAL 0.5 mg/dL (0.2-1.0); BUN - BLOOD UREA NITROGEN 15 mg/dL (6-20); CALCIUM 8.6 mg/dL (8.5-10.3); CARBON DIOXIDE - CO2 28 mmol/L (21-32); CHLORIDE 104 mmol/L (101-111); ETOH - ETHANOL 404.8 mg/dL; GFR - MDRD 97 (>89); GLUCOSE 104 mg/dL (70-100); LIPASE 19 U/L (22-51); POTASSIUM 3.9 mmol/L (3.5-5.0); SALICYLATE < 6.0 mg/dL; SODIUM 143 mmol/L (135-145); TOTAL PROTEIN 8.2 g/dL (6.7-8.2)
--- NOTE | 2020-11-08 10:29 | CT Report ---
PROCEDURE: HEAD WO INDICATIONS: head injury, altered TECHNIQUE: Noncontrast 4.5 mm thick angled axial sections acquired from the foramen magnum to the vertex. For r adiation dose reduction, the following was used: automated exposure control, adjustment of mA and/or kV according to patient size. COMPARISON: None. FINDINGS: Image quality: Excellent. CSF spaces: Basal cisterns are patent. No extra-axial fluid collections. Ventricles are normal in size and shape. Brain: No midline shift. No intracranial masses or hemorrhage. Bhat-white matter interface is norm al. Skull and face: Calvarium and visualized facial bones are intact, without suspicious lesions. Sinuses: Visualized sinuses and mastoids are clear. IMPRESSION: Unremarkable CT brain. No intracranial hemorrhage or mass effect. Reviewed by: Jerry Aguirre MD on 11/08/2020 9:28 AM [facility] Approved by: Jerry Aguirre MD on 11/08/2020 9:28 AM [facility] Station ID: [id number]
[2020-11-08] MEDS ORDERED: THIAMINE INJ 100 MG in SODIUM CHLORIDE 0.9% 50 ML IV STA (10:45)
[2020-11-08 14:14] LABS: MUDS CUTOFF CONCENTRATIONS CUTOFF CONC BELOW:
[2020-11-08 14:16] LABS: BILIRUBIN,URINE NEGATIVE (NEGATIVE); GLUCOSE, URINE (UA) NEGATIVE (NEGATIVE); KETONES,URINE (UA) NEGATIVE (NEGATIVE); LEUKOCYTE ESTERASE, URINE NEGATIVE (NEGATIVE); NITRITE,URINE NEGATIVE (NEGATIVE); OCCULT BLOOD,URINE NEGATIVE (NEGATIVE); PROTEIN,URINE TRACE mg/dL (NEGATIVE); UROBILINOGEN,URINE 0.2 (NORMAL) E.U./dL (NORMAL)
[2020-11-08 14:23] LABS: CLARITY,URINE CLEAR (CLEAR)
[2020-11-08 14:25] LABS: AMPHETAMINE SCREEN,URINE NEGATIVE (NEGATIVE); BARBITURATE SCREEN,UR NEGATIVE (NEGATIVE); BENZODIAZEPINES SCREEN, URINE NEGATIVE (NEGATIVE); COCAINE SCREEN URINE NEGATIVE (NEGATIVE); METHADONE SCREEN, URINE NEGATIVE (NEGATIVE); METHAMPHETAMINES SCREEN, URINE NEGATIVE (NEGATIVE); OPIATE SCREEN, URINE NEGATIVE (NEGATIVE); OXYCODONE SCREEN, URINE POSITIVE (NEGATIVE); PROPOXYPHENE SCREEN, URINE NEGATIVE (NEGATIVE); THC CANNABINOID SCREEN, URINE NEGATIVE (NEGATIVE); TRICYCLIC ANTIDEPRESSANT,URINE NEGATIVE (NEGATIVE)
[2020-11-08] MEDS ORDERED: ACETAMINOPHEN 325 MG TABLET PO STA (16:53)
[2020-11-08] MEDS ORDERED: IBUPROFEN 800 MG TABLET PO STA (17:26)
[2020-11-08 23:07] VITALS: BP 152/99
--- NOTE | 2020-11-08 23:21 | ED Physician Documentation ---
ED Addendum - Addendum Addendum: The patient had a repeat blood alcohol which was about 100. I went in to talk to him and he was easily arousable awake alert and conversant and oriented. He was answering questions readily. He states he had been having depression recently and that is why he drank heavily again today. He had been sober for a while. He denies regular use recently. He states he had had suicidal ideation in the past and had been treated with counseling. This was about a year and a half ago. No recent suicidal ideation. There had been reports of some comments while he was intoxicated of not feeling worth living or not wanting to be around. He does not recall those comments at this time. He denies any suicidal ideation right now and wants counseling. He states he had been seeking mental health counseling this past week but had not gotten an appointment as yet. He promises that he would not hurt himself and does not feel suicidal. His chief is with him and states that he can be close and checking with the patient frequently. We will provide the patient the crisis hotline number. At this point I do not see a need for hospitalization and the patient contracts verbally for safety. He outlines that he will not be drinking and would call the crisis line if he felt the need. 11/08/20 23:18
== END 2020-11-08 23:43 | disposition home or self-care (01) ==
LOC: EDUNIT# → ED 09:08
DX: F10.121 Alcohol abuse with intoxication delirium (principal); Y90.8 Blood alcohol level of 240 mg/100 ml or more; R45.851 Suicidal ideations; F32.9 Major depressive disorder, single episode, unspecified; I10 Essential (primary) hypertension; Z98.890 Other specified postprocedural states
CPT/HCPCS: 36415; 70450; 72125; 80053; 80306; 80307; 80320; 80329; 81003; 83690; 84443; 85025; 96365; 99281; 99284; A9270; J3411; J7040; 81001; 87086

== ENCOUNTER 2020-11-11 08:48 | Outpatient (CLI) | payer OTHER | END 2020-11-11 08:49 | disposition E | LOC: EMS 08:48 | DX: I46.9 Cardiac arrest, cause unspecified (principal) ==